=== PATIENT | female | born 1970 | race Two or more races ===

== ENCOUNTER 2016-11-08 16:14 | Emergency (ER) | payer SELFPAY ==
[~2016-11-08] VITALS: Ht 157.5 cm; Wt 69.4 kg
[2016-11-08 16:44] VITALS: BP 158/62
== END 2016-11-08 16:44 | disposition home or self-care (01) ==
LOC: ER 16:17
DX: M79.1 Myalgia (principal); I10 Essential (primary) hypertension
CPT/HCPCS: A4606; Z7610